=== PATIENT | male | born 1955 | race Caucasian/White ===

== ENCOUNTER 2021-05-14 15:50 | Outpatient (REF) | payer BC, SELFPAY ==
[2021-05-14 20:24] LABS: Bilirubin Negative (Negative); Blood Trace-lysed (Negative); Clarity Clear (Clear); Glucose Negative (Negative); Ketones Negative (Negative); Leukocyte Esterase Negative (Negative); Nitrite Negative (Negative); Specific Gravity >= 1.030 (1.005-1.025); Urobilinogen 0.2 EU/dL (Up TO 0.2)
[2021-05-14 20:35] LABS: Bacteria Few HPF (Negative); C & S Indicated? No; Casts Negative LPF (Negative); Crystals Negative HPF (Negative); Epithelial Cells Few HPF (Negative); Mucus Trace (Negative); WBC 0-2 HPF (0-5)
== END 2021-05-14 15:51 | disposition home or self-care (01) ==
LOC: LBN 15:50
PROVIDERS: PCP Family Medicine; Visit Provider Nurse Practitioner Gerontology
DX: R31.29 Other microscopic hematuria (principal)
CPT/HCPCS: 81003; 81015

== ENCOUNTER 2021-06-03 01:10 | Outpatient (CLI) | payer BC, SELFPAY ==
[2021-06-03 08:24] LABS: CREATININE 0.9 mg/dL (0.70-1.30)
--- NOTE | 2021-06-03 08:45 | DI.CT_ITS ---
Exam(s) CT ABDOMEN PELVIS WO/W EXAM: CT ABDOMEN PELVIS WO/W CLINICAL HISTORY: microscopic hematuria,r31.9 TECHNIQUE: CT examination of the abdomen pelvis was performed utilizing CT urogram protocol with non contrast CT followed by venous phase 7 minutes delayed phase imaging with intravenous infusion of 100 cc of Omnipaque 350. COMPARISON: No exams were available for comparison FINDINGS: Images obtained through the lung bases are unremarkable. Noncontrast CT shows no evidence of urinary tract calcification. Images obtained through the lung bases are unremarkable. The liver is unremarkable in appearance. The spleen is unremarkable in appearance. The pancreas is unremarkable in appearance. Gallbladder and bile ducts appear normal. Abdominal aorta and major visceral branches appear intact. No evidence of abdominal wall hernia. No evidence of abdominal or pelvic adenopathy. No focal bowel pathology. The kidneys have a somewhat lobulated appearance, which is nonspecific. No definite focal cortical s car seen. Ape. There is normal symmetrical renal cortical enhancement. There is no evidence of a r enal mass, hydronephrosis, or nephrolithiasis. There are small bilateral renal cysts, largest on the left kidney measuring 3 cm in diameter. The collecting systems and ureters are unremarkable in appe arance. There is normal appearance of the urinary bladder which is incompletely filled.. IMPRESSION: Negative CT urogram. RADIATION DOSE DELIVERED: 4,662.86mGy.cm Total DLP 4,662.86mGy.cm Total DLP 31.77mGy CTDIvol RADIATION OPTIMIZATION: All CT scans at this facility use at least one of these dose optimization te chniques: automated exposure control; mA and/or kV adjustment per patient size (includes targeted exa ms where dose is matched to clinical indication); or iterative reconstruction.
[2021-06-03] MEDS: Omnipaque 350 MG/ML 100 ML BTL IJ (08:51)
== END 2021-06-03 01:30 ==
PROVIDERS: PCP Family Medicine; Visit Provider Nurse Practitioner Gerontology
DX: R31.9 Hematuria, unspecified (principal)
CPT/HCPCS: 74178; 82565; J3490

== ENCOUNTER → 2022-06-16 14:16 | Outpatient (BNVA) | payer MEDICARE, BC, SELFPAY | PROVIDERS: PCP Family Medicine; Referring Provider Family Medicine; Visit Provider Urology | DX: R31.29 Other microscopic hematuria (principal); N43.3 Hydrocele, unspecified | CPT/HCPCS: 81003; 99214 ==

== ENCOUNTER → 2022-08-11 08:59 | Outpatient (BNVA) | payer MEDICARE, BC, SELFPAY | PROVIDERS: PCP Family Medicine; Referring Provider Family Medicine; Visit Provider Urology | DX: R31.29 Other microscopic hematuria (principal); N43.3 Hydrocele, unspecified | CPT/HCPCS: 99214 ==

== ENCOUNTER 2022-09-10 06:14 | Day surgery (SDC) | payer MEDICARE, BC, SELFPAY ==
[2022-09-10] VITALS (8 sets, daily range): BP systolic 101–152; BP diastolic 63–93; PULSE 61–76; RESP 15–18; TEMP 36.5–37.1; O2SAT 92–96; BMI 44.4
--- NOTE | 2022-09-10 06:49 | W.PM.HP.N ---
Date of service: 09/10/22 Time of Service: 06:49 Assessment and Plan Assessment and plan (1) Hydrocele: Status: Acute Assessment and plan: For hydrocelectomy History of Present Illness History of Present Illness Chief Complaint: Hydrocele Narrative: This is a 67-year-old gentleman who has a history of a large left hydrocele.? He had been considering an aspiration procedure to temporarily alleviate his symptoms until a more convenient time arose for a formal hydrocelectomy. He tells me that he actually had the hydrocele drained recently before he went off on vacation.? The fluid reaccumulated within 5 or 6 days.? He now believes he is ready to move forward with the hydrocelectomy. He does have some discomfort in the left scrotal area.? He has not noticed any redness.? He had some mild bruising right after the drainage procedure, but none now. He has no known bleeding disorders. Review of Systems Narrative: No fevers or chills No vision change or dysphasia No diabetes or thyroid dysfunction Sleep apnea. No hemoptysis No chest pain or palpitations No nausea, vomiting, hepatitis, ulcers or jaundice No seizures, strokes or peripheral neuropathy No bleeding disorders or anemia No gout PFSH All Active Problems (Updated 09/10/22 @ 06:22 by Festus Biggs) Hydrocele (Acute) Microscopic hematuria (Acute) Medical History (Updated 09/10/22 @ 06:22 by Festus Biggs) Ankle fracture Right ankle with plates and screws 2003 Diverticulitis Hypercholesterolemia Hypertension Nevus with mild atypia on back Obesity Right shoulder pain Sleep apnea has CPAP Surgical History (Updated 09/10/22 @ 06:23 by Festus Biggs) Appendectomy Arthroplasty of knee (R) TKA History of partial colectomy 05/11/2022. Repair of inguinal hernia Repair of umbilical hernia Family History Mother Diabetes Father , Pancreatic cancer at age 57. Pancreatic cancer Social History Smoking/Tobacco Use Status: Never Smoking risk assessment performed?: Yes Alcohol Intake: current Alcohol Intake frequency: a few times a month Drug use: Never Substance use type: does not use Do you feel safe at home: Yes Do you feel safe in your relationship?: Yes Meds Allergies and Home Medications Allergies Allergy/AdvReac Type Severity Reaction Status Date / Time No Known Allergies Allergy Verified 09/10/22 06:23 Home Medications Medication Instructions Recorded Confirmed Type simvastatin 40 mg tablet 40 mg PO DAILY 06/11/15 09/10/22 History losartan 50 mg tablet 50 mg PO DAILY 06/16/22 09/10/22 History pramipexole 1 mg tablet (Mirapex) 1 mg PO HS 06/16/22 09/10/22 History Exam Const General: cooperative Neck Neck: supple Resp Effort & Inspection: normal respiratory effort Auscultation: clear to auscultation bilaterally Cardio Rate: regular rate Rhythm: regular rhythm GI Inspection: obesity Palpation: soft and no masses Scrotum: scrotal swelling on the left Neuro General: patient alert, patient awake and patient oriented x3 Results Last Vital Signs Temp 36.5 C 09/10/22 06:25 Pulse 66 09/10/22 06:25 Resp 16 09/10/22 06:25 BP 152/93 H 09/10/22 06:25 Pulse Ox 96 09/10/22 06:25 Time Spent Time spent with Patient: <40 minutes Time was spent: other
--- NOTE | 2022-09-10 06:57 | W.ANESPRE ---
General Info Date of Service Date Performed: 09/10/22 Height: 5 ft 10 in Weight: 140.5 kg Body Mass Index (BMI): 44.4 Surgical Procedure: Operation Date: 09/10/22 07:40 Proposed Procedure Side Surgeon p Hydrocelectomy Left Tha Pena MD Meds Allergies and Home Medications Allergies Allergy/AdvReac Type Severity Reaction Status Date / Time No Known Allergies Allergy Verified 09/10/22 06:23 Home Medication Medication Instructions Recorded simvastatin 40 mg tablet 40 mg PO DAILY 06/11/15 losartan 50 mg tablet 50 mg PO DAILY 06/16/22 pramipexole 1 mg tablet (Mirapex) 1 mg PO HS 06/16/22 Current Visit Medications: Current Medications Generic Name Dose Route Start Last Admin Trade Name Freq PRN Reason Stop Dose Admin Ringer's Solution 1,000 mls @ 80 mls/hr 09/10/22 06:00 IV 10/09/22 23:59 INFUSION WENDI Cefazolin Sodium 3,000 mg/ 100 mls @ 200 mls/hr 09/10/22 06:00 Sodium Chloride IVPB 09/10/22 18:00 PREOP WENDI IV Miscellaneous Supplies 1 each 09/10/22 06:00 Iv Access IV 10/09/22 23:59 DIRECTED WENDI Sodium Chloride 0 ml 09/10/22 06:00 Normal Saline Flush 10 Ml Syr IV 10/09/22 23:59 PRN PRN Sodium Chloride 0 ml 09/10/22 06:00 Normal Saline 10 Ml Vial IJ 10/09/22 23:59 DIRECTED PRN Sterile Water 0 ml 09/10/22 06:00 Water,Injection,Sterile 10 Ml Vial IJ 10/09/22 23:59 DIRECTED PRN PFSH Active Problems Active Problems: Problem Status Onset Code Hydrocele N43.3 Microscopic hematuria R31.29 Medical History Medical History (Updated 09/10/22 @ 06:22 by Festus Biggs) Ankle fracture Right ankle with plates and screws 2003 Diverticulitis Hypercholesterolemia Hypertension Nevus with mild atypia on back Obesity Right shoulder pain Sleep apnea has CPAP Surgical History Surgical History (Updated 09/10/22 @ 06:23 by Festus Biggs) Appendectomy Arthroplasty of knee (R) TKA History of partial colectomy 05/11/2022. Repair of inguinal hernia Repair of umbilical hernia Tobacco Smoking/Tobacco Use Status: Never Alcohol Alcohol Intake: current Alcohol intake frequency: a few times a month Substance Use Substance use: Never Substance use type: does not use Vital Signs and Lab Results Vital Signs Most Recent Vital Signs in EMR: Most Recent Vital Signs Temp Pulse Resp BP Pulse Ox 36.5 C 66 16 152/93 H 96 09/10/22 06:25 09/10/22 06:25 09/10/22 06:25 09/10/22 06:25 09/10/22 06:25 Lab Results Blood Type / Crossmatch: No Data to Display Complete Blood Count: No Data to Display Complete Metabolic Panel: No Data to Display Liver Function Panel: No Data to Display Coagulation Panel: No Data to Display Cardiac Panel: No Data to Display Arterial Blood Gas: No Data to Display Venous Blood Gas: No Data to Display Pancreas Panel: No Data to Display Thyroid Panel: No Data to Display Infectious Disease: No Data to Display Blood Cultures: No Data to Display Toxicology Panel: No Data to Display Anesthesia Assessment and Plan Anesthesia History Personal History: No History of Anesthesia Complications Family History: No Family History of Anesthesia Complications Exercise Tolerance Exercise Tolerance: Metabolic Equivalents>4 Pertinent Negatives Pertinent Negatives: No Symptoms of GERD, No Major Cardiovascular Symptoms or Complaints, No Major Pulmonary Symptoms or Complaints and No History of CVA/TIA Cardiac & Pulmonary Exam Cardiac Exam: Normal S1/S2 Heart Sounds Pulmonary Exam: Clear Bilateral Breath Sounds Implantable Cardiac Device Does patient have a Pacemaker or an ICD?: No Airway Exam Known Difficult Airway: No Mallampati Class: 4 Mouth Opening: Normal (> 3cm) Thyromental Distance: Greater than 3 cm Neck Range of Motion: Full ROM Neck Circumference: Thick Teeth Condition: Normal Dentition (Cap right front upper) ASA Classification ASA Score: ASA 3 Emergency Case?: No NPO Status NPO Status: NPO Clears >2 hours, Solids >8 hours Anesthesia Plan Resuscitation Status: Full Code Anesthesia Technique: General Anesthesia Airway Planned: LMA Monitors Used: Standard Monitors
[2022-09-10] MEDS: Lactated Ringers 1,000 ML 80 ML IV (07:03)
[2022-09-10] MEDS: ceFAZolin 3,000 MG in Normal Saline 100 ML 200 MG IVPB (07:42)
[2022-09-10] MEDS: Bupivacaine 0.25% Pres-Free 30 ML VIAL (08:04)
--- NOTE | 2022-09-10 08:31 | W.PM.OP ---
Date of service: 09/10/22 Time of Service: 08:31 Operative Note Operative Note DATE OF PROCEDURE: 09/10/22 PRE-OP DIAGNOSIS: Left hydrocele POST-OP DIAGNOSIS: same PROCEDURE: Left Hydrocelectomy SURGEON: Tha Pena ANESTHESIA TYPE: Local By Surgeon and General:No Airway Refer to Anesthesia Record ESTIMATED BLOOD LOSS: 25 PATHOLOGY: none sent COMPLICATIONS: None Patient was transported to: PACU Patient's condition: stable Implants: none Indications: This is a 67-year-old gentleman who has a history of left-sided scrotal swelling. On examination and by ultrasound, he has a large left hydrocele. He did have the hydrocele aspirated in an attempt to allow some temporary improvement in his discomfort. The hydrocele reaccumulated within 4 to 5 days, so he presents now for hydrocelectomy Findings: Normal testis within the hydrocele Procedure Description: The patient was brought to the operating room on 09/10/2022. He was given preoperative IV antibiotics. After successful induction of general anesthesia, he was placed in the supine position. His genitalia was prepped and draped sterilely. A left transverse scrotal incision was made and the incision was extended down through the dartos muscle until the tunica vaginalis was reached. A large amount of fluid was found within the tunica. We then dissected the hydrocele free from the surrounding dark ptosis muscle. The testis, still within the hydrocele sac, was then delivered through the scrotal incision. The hydrocele sac was opened anteriorly and a large amount of yellow clear fluid was obtained. The redundant hydrocele sac was then excised using a Bovie. The sac was inverted behind the testis and the edges of the sac were reapproximated using simple interrupted 3-0 Vicryl sutures. Hemostasis was obtained with the cautery. The testis was delivered back within the left hemiscrotum. The dartos muscle was closed with a running section of 3-0 chromic suture. The skin was closed with 4-0 chromic suture in an interrupted fashion. Dermabond was applied to the incision site. A fluff dressing was applied followed by a scrotal support. The patient tolerated the procedure well with no complications.
--- NOTE | 2022-09-10 08:33 | W.PM.DSUDISC ---
Date of service: 09/10/22 Time of Service: 08:33 Discharge Plan Disposition Patient Disposition: Home Condition: Stable Discharge Details Reason For Visit: hydrocelectomy Attending Provider: Tha Pena Primary Care Provider: Mo Thomas Home Meds and New Rx's Prescriptions: New oxycodone 5 mg tablet 5 mg PO Q6H MDD 4 PRN (Reason: pain) Qty: 12 0RF No Action losartan 50 mg tablet 50 mg PO DAILY pramipexole [Mirapex] 1 mg tablet 1 mg PO HS simvastatin 40 MG tablet 40 mg PO DAILY Discharge Instructions Additional Instructions: Scrotal support and Ice pack to scrotum while awake OK to shower and remove fluff dressing tomorrow (09/11) Followup appt 1 to 2 weeks for wound check may take tylenol and ibuprofen for pain - script for oxycodone sent to pharmacy - use for breaththrough pain Activity:: no straining or lifting over 10 pounds for 1 week Remove Dressings/Wound Care:: 24 hours Shower/Bathe:: 24 hours Diet:: As Tolerated DS: Diagnosis Discharge Diagnosis (1) Hydrocele: Status: Acute
--- NOTE | 2022-09-10 09:03 | W.ANESPOSTOP ---
Postoperative Evaluation Date, Time and Location Date Performed: 09/10/22 Time Performed: 09:03 Patient Location: PACU Vital Signs Most Recent Imported Vital Signs: Most Recent Vital Signs Temp Pulse Resp BP Pulse Ox 36.5 C 72 17 111/70 92 09/10/22 09:00 09/10/22 09:00 09/10/22 09:00 09/10/22 09:00 09/10/22 09:00 Pain Score Most Recent Pain Score: Most Recent Pain Score Pain Level 4 09/10/22 09:00 Assessment Mental Status: Awake (Alert & Oriented to Patient Baseline) Airway and Respiratory Function: Patent airway with normal (patient baseline) respiratory exam Cardiovascular Function: Hemodynamically Stable Hydration Status: Adequately Hydrated Nausea & Vomiting: No Nausea or Vomiting Pain: Pain is Moderate or Severe Postoperative Pain Management: Pain being addressed with medication Peripheral Nerve Block: Patient did not receive a nerve block
[2022-09-10] MEDS: oxyCODONE 5 MG TAB PO ×2 (09:15→10:01)
== END 2022-09-10 10:55 | disposition home or self-care (01) ==
PROVIDERS: PCP Family Medicine; Visit Provider Urology
PROC: (CPT 55040; principal; 2022-09-10 07:30)
DX: N43.3 Hydrocele, unspecified (principal); I10 Essential (primary) hypertension; E66.9 Obesity, unspecified; Z68.41 Body mass index [BMI] 40.0-44.9, adult
CPT/HCPCS: 55040; J0690; J1885; J2405; J2704

== ENCOUNTER → 2022-09-17 15:20 | Outpatient (BNVA) | payer MEDICARE, BC, SELFPAY | PROVIDERS: PCP Family Medicine; Referring Provider Family Medicine; Visit Provider Urology | DX: N49.2 Inflammatory disorders of scrotum (principal); Z48.816 Encounter for surgical aftercare following surgery on the genitourinary system ==

== ENCOUNTER → 2022-10-02 13:23 | Outpatient (BNVA) | payer MEDICARE, BC, SELFPAY | PROVIDERS: PCP Family Medicine; Referring Provider Family Medicine; Visit Provider Urology | DX: Z48.816 Encounter for surgical aftercare following surgery on the genitourinary system (principal) ==

== ENCOUNTER → 2022-10-22 15:23 | Outpatient (BNVA) | payer MEDICARE, BC, SELFPAY | PROVIDERS: PCP Family Medicine; Referring Provider Family Medicine; Visit Provider Urology | DX: Z48.816 Encounter for surgical aftercare following surgery on the genitourinary system (principal) ==

== ENCOUNTER → 2023-05-25 09:43 | Outpatient (BNVA) | payer MEDICARE, BC, SELFPAY | PROVIDERS: PCP Family Medicine; Referring Provider Family Medicine; Visit Provider Urology | DX: R31.29 Other microscopic hematuria (principal); Z98.890 Other specified postprocedural states | CPT/HCPCS: 81003; 99213 ==